=== PATIENT | female | born 1970 | race African-American/Black ===

== ENCOUNTER 2019-01-02 00:49 | Emergency (ER) | payer OTHER ==
[2019-01-02] MEDS ORDERED: predniSONE 20 MG TAB ONE (01:41)
--- NOTE | 2019-01-02 07:29 | RAD ---
EXAM: Single view of the chest HISTORY: Cough and shortness of breath COMPARISON: None FINDINGS: Single view of the chest shows a normal sized cardiomediastinal silhouette. There is no eden dence of consolidation, mass, or pleural effusion. The bones are unremarkable. IMPRESSION: No evidence of acute cardiopulmonary disease
== END 2019-01-02 03:15 | disposition home or self-care (01) ==
LOC: ERS 00:49
DX: J45.901 Unspecified asthma with (acute) exacerbation (principal); F31.9 Bipolar disorder, unspecified; F41.9 Anxiety disorder, unspecified; Z79.899 Other long term (current) drug therapy
CPT/HCPCS: 71045; 94640; J7512; J7620

== ENCOUNTER 2019-02-20 07:54 | Emergency (ER) | payer OTHER ==
[2019-02-20] MEDS ORDERED: Dexamethasone 10 MG/ML VIAL ONE (08:47)
[2019-02-20 08:54] LABS: #Basophils 0.1 thou/uL (0.0-0.2); #Eosinphils 0.4 thou/uL (0.0-0.7); #Lymphocytes 2.9 thou/uL (1.20-3.40); #Monocytes 0.5 thou/uL (0.11-0.59); #Neutrophils 5.6 thou/uL (1.40-6.50); %Basophils 0.9 % (0.0-1.0); %Eosinophils 4.4 % (0.0-10.0); %Lymphocytes 30.4 % (21.0-51.0); %Monocytes 4.8 % (0.0-10.0); %Neutrophils 59.5 % (42.0-75.0); Hemoglobin 12.4 g/dL (12.0-16.0); Mean Corpuscular HGB CONC 32.2 g/dL (32.0-36.0); Mean Corpuscular Hemoglobin 26.1 pg (27.0-31.0); Mean Corpuscular Volume 80.8 fL (78.0-98.0); Mean Platelet Volume 7.4 fL (7.4-10.4); Platelet Count 356 thou/uL (130-400); RBC Distribution Width 13.5 % (11.5-14.5); Red Blood Cell (RBC) Count 4.76 mill/uL (4.20-5.40); White Blood Cell (WBC) Count 9.5 thou/uL (4.8-10.8)
[2019-02-20] MEDS ORDERED: ISOVUE-370 76%-LOCM 1 ML ONE (09:17)
[2019-02-20 09:21] LABS: ALT (SGPT) 26 U/L (8-55); AST (SGOT) 15 U/L (5-34); Albumin 3.9 g/dL (3.5-5.0); Alkaline Phosphatase 81 U/L (40-150); Anion Gap 14 mmol/L (10-20); BUN (Urea Nitrogen) 13 mg/dL (7.0-18.7); Bilirubin, Total 0.5 mg/dL (0.2-1.2); Calc. Creatinine Clearance 0 mL/min (70-130); Calcium 10.3 mg/dL (7.8-10.44); Carbon Dioxide 31 mmol/L (22-29); Chloride 100 mmol/L (98-107); Estimated GFR-MDRD Greater than 90; Globulin 3.9 g/dL (2.4-3.5); Glucose 142 mg/dL (70-105); Potassium 4.6 mmol/L (3.5-5.1); Protein, Total 7.8 g/dL (6.0-8.3); Sodium 140 mmol/L (136-145)
[2019-02-20 10:18] LABS: Pregnancy Test - Urine (BHCG) Negative (Negative); Pregu Control Background? CLEAR/WHITE (CLR/WHITE); Pregu Control Bar Appear? YES (CONTROL BAR); Specific Gravity 1.014 (1.002-1.036)
--- NOTE | 2019-02-20 10:42 | CT ---
POSTCONTRAST SOFT TISSUE NECK CT: HISTORY: Neck pain. The patient has lost her voice. Possible reaction to allergy medicine. FINDINGS: Visualized brain parenchyma is unremarkable. Adequate aeration of the visualized sinuses and mastoid air cells. Limited evaluation of the oral cavity due to dental amalgam artifact. Midline fatty raphae of the to ngue is preserved. Epiglottis has a normal caliber. Preepiglottic fat is preserved. There is fullness of the adenoid tonsils, palatine tonsils without evidence of peritonsillar abscess. Aerodigestive tract appears to be patent. No mucosal abnormality. Symmetric attenuation of the parotid and submandibular glands. Symmetric attenuation of the cleidoma stoid muscles. Enlarged right level II lymph node measuring 1.3 x 1.3 cm. Enlarged left level II lymph node measuri ng 1.3 x 1.5 cm. Additional scattered nonspecific, nonenlarged lymph nodes are noted. Thyroid gland is unremarkable. Grossly, the great vessels of the neck are unremarkable. Cervical spine vertebral body height is maintained. There is no fracture. There are varying degrees of central canal stenosis and foraminal narrowing on the basis of degenerative change. Lung apices and upper mediastinum are unremarkable. The true vocal cords appear to be symmetric in a ppearance. No obvious thickening or abnormality. False vocal cords are unremarkable on the coronal reformatted images. IMPRESSION: 1, Lymphoid hypertrophy which may be reactive secondary to infectious or inflammatory process. Prim moses neoplasm of the lymphoid tissue cannot be completely excluded. 2. No evidence of peritonsillar abscess. 3. Unremarkable appearance of the true vocal cords. POS: [facility]
== END 2019-02-20 11:26 | disposition home or self-care (01) ==
LOC: ERS 07:54
DX: J02.9 Acute pharyngitis, unspecified (principal); F41.9 Anxiety disorder, unspecified; F31.9 Bipolar disorder, unspecified; E66.9 Obesity, unspecified
CPT/HCPCS: 36415; 70491; 80053; 81025; 85025; 85652; 86140; 96361; 96374; J1100; Q9966

== ENCOUNTER 2019-03-05 13:24 | Outpatient (CLI) | payer OTHER ==
--- NOTE | 2019-03-05 15:47 | MMO ---
Bilateral MAMMO Bilat Screen DDI. CLINICAL HISTORY: Patient is 49 years old and is seen for screening. The patient has no family history of breast cancer. The patient has no personal history of cancer. VIEWS: The views performed were: bilateral craniocaudal; bilateral mediolateral oblique; and cleavage view. FILMS COMPARED: The present examination has been compared to prior imaging studies performed at [facility] on 06/06/2013 and 03/24/2016, and at [facility] on 09/05/2008. This study has been interpreted with the assistance of computer-aided detection. MAMMOGRAM FINDINGS: There are scattered fibroglandular densities. There are no suspicious masses, suspicious calcifications, or new areas of architectural distortion. IMPRESSION: THERE IS NO MAMMOGRAPHIC EVIDENCE OF MALIGNANCY. A ROUTINE FOLLOW-UP MAMMOGRAM IN 1 YEAR IS RECOMMENDED. ACR BI-RADS Category 1 - Negative MAMMOGRAPHY NOTE: 1. A negative mammogram report should not delay a biopsy if a dominant of clinically suspicious mass is present. 2. Approximately 10% to 15% of breast cancers are not detected by mammography. 3. Adenosis and dense breasts may obscure an underlying neoplasm. Reported by: GEOFF DAWKINS MD Electonically Signed: [id number]
== END 2019-03-05 13:25 | disposition home or self-care (01) ==
LOC: SCSMAMMO 13:24
PROVIDERS: ATTEND Nurse Practitioner Family
DX: Z12.31 Encounter for screening mammogram for malignant neoplasm of breast (principal)
CPT/HCPCS: 77067

== ENCOUNTER 2020-03-09 12:21 | Outpatient (CLI) | payer OTHER ==
--- NOTE | 2020-03-09 12:59 | MMO ---
Bilateral MAMMO Bilat Screen DDI. CLINICAL HISTORY: Patient is 50 years old and is seen for screening. The patient has no family history of breast cancer. The patient has no personal history of cancer. VIEWS: The views performed were: bilateral craniocaudal and bilateral mediolateral oblique. FILMS COMPARED: The present examination has been compared to prior imaging studies performed at [facility] on 03/05/2019, at [facility] on 06/06/2013 and 03/24/2016, and at [facility] on 09/05/2008. This study has been interpreted with the assistance of computer-aided detection. MAMMOGRAM FINDINGS: The breasts are almost entirely fat. There are no suspicious masses, suspicious calcifications, or new areas of architectural distortion. IMPRESSION: THERE IS NO MAMMOGRAPHIC EVIDENCE OF MALIGNANCY. A ROUTINE FOLLOW-UP MAMMOGRAM IN 1 YEAR IS RECOMMENDED. ACR BI-RADS Category 1 - Negative MAMMOGRAPHY NOTE: 1. A negative mammogram report should not delay a biopsy if a dominant of clinically suspicious mass is present. 2. Approximately 10% to 15% of breast cancers are not detected by mammography. 3. Adenosis and dense breasts may obscure an underlying neoplasm. Reported by: MIREILLE MAIN MD Electonically Signed: [id number]
== END 2020-03-09 12:22 | disposition home or self-care (01) ==
LOC: BICMAMMO 12:21
PROVIDERS: ATTEND Nurse Practitioner Family
DX: Z12.31 Encounter for screening mammogram for malignant neoplasm of breast (principal)
CPT/HCPCS: 77067

== ENCOUNTER 2021-07-04 22:56 | Emergency (ER) | payer OTHER ==
[~2021-07-04 22:56] MED LIST: Iopamidol-370 76% 500 ML 1 ML ONE
[2021-07-05 00:48] LABS: #Basophils 0.2 thou/uL (0.0-0.2); #Eosinphils 0.2 thou/uL (0.0-0.7); #Lymphocytes 1.9 thou/uL (1.20-3.40); #Monocytes 0.4 thou/uL (0.11-0.59); #Neutrophils 5.7 thou/uL (1.40-6.50); %Basophils 2.1 % (0.0-1.0); %Eosinophils 2.4 % (0.0-10.0); %Lymphocytes 22.3 % (21.0-51.0); %Monocytes 5.2 % (0.0-10.0); %Neutrophils 67.9 % (42.0-75.0); Hemoglobin 13.3 g/dL (12.0-16.0); Mean Corpuscular HGB CONC 31.6 g/dL (32.0-36.0); Mean Corpuscular Hemoglobin 25.6 pg (27.0-31.0); Mean Corpuscular Volume 81.1 fL (78.0-98.0); Platelet Count 400 thou/uL (130-400); RBC Distribution Width 14.8 % (11.5-14.5); Red Blood Cell (RBC) Count 5.18 mill/uL (4.20-5.40); White Blood Cell (WBC) Count 8.4 thou/uL (4.8-10.8)
[2021-07-05] MEDS ORDERED: cloNIDine 0.1 MG TAB ONE (00:49)
[2021-07-05] MEDS ORDERED: Aspirin 325 MG TAB ONE (00:51)
[2021-07-05 01:09] LABS: ALT (SGPT) 15 U/L (8-55); AST (SGOT) 11 U/L (5-34); Albumin 3.9 g/dL (3.5-5.0); Alkaline Phosphatase 71 U/L (40-110); Anion Gap 13 mmol/L (10-20); BUN (Urea Nitrogen) 15 mg/dL (7.0-18.7); Bilirubin, Total 0.4 mg/dL (0.2-1.2); Calc. Creatinine Clearance 0 mL/min (70-130); Calcium 9.9 mg/dL (7.8-10.44); Carbon Dioxide 27 mmol/L (22-29); Chloride 101 mmol/L (98-107); Globulin 4.3 g/dL (2.4-3.5); Glucose 155 mg/dL (70-105); Protein, Total 8.2 g/dL (6.0-8.3); Sodium 137 mmol/L (136-145)
== END 2021-07-05 02:46 | disposition home or self-care (01) ==
LOC: ERS 22:56
DX: R07.2 Precordial pain (principal); R00.0 Tachycardia, unspecified; R05.9 Cough, unspecified; I10 Essential (primary) hypertension; E11.9 Type 2 diabetes mellitus without complications; K21.9 Gastro-esophageal reflux disease without esophagitis; J45.909 Unspecified asthma, uncomplicated; Z86.16 Personal history of COVID-19; Z79.899 Other long term (current) drug therapy
CPT/HCPCS: 71045; 71275; 80053; 84484; 85025; 93005; Q9967

== ENCOUNTER 2022-01-09 18:29 | Emergency (ER) | payer OTHER ==
[2022-01-09 19:15] LABS: #Basophils 0.1 thou/uL (0.0-0.2); #Eosinphils 0.2 thou/uL (0.0-0.7); #Lymphocytes 1.7 thou/uL (1.20-3.40); #Monocytes 0.4 thou/uL (0.11-0.59); #Neutrophils 7.1 thou/uL (1.40-6.50); %Basophils 0.6 % (0.0-1.0); %Eosinophils 2.1 % (0.0-10.0); %Lymphocytes 17.7 % (21.0-51.0); %Monocytes 3.8 % (0.0-10.0); %Neutrophils 75.9 % (42.0-75.0); Hemoglobin 13.8 g/dL (12.0-16.0); Mean Corpuscular HGB CONC 31.6 g/dL (32.0-36.0); Mean Corpuscular Hemoglobin 26.5 pg (27.0-31.0); Platelet Count 355 thou/uL (130-400); RBC Distribution Width 13.7 % (11.5-14.5); White Blood Cell (WBC) Count 9.4 thou/uL (4.8-10.8)
[2022-01-09 19:38] LABS: ALT (SGPT) 19 U/L (8-55); AST (SGOT) 13 U/L (5-34); Alkaline Phosphatase 82 U/L (40-110); Anion Gap 13 mmol/L (10-20); BUN (Urea Nitrogen) 12 mg/dL (7.0-18.7); Bilirubin, Total 0.6 mg/dL (0.2-1.2); Calc. Creatinine Clearance 0 mL/min (70-130); Calcium 10.2 mg/dL (7.8-10.44); Carbon Dioxide 29 mmol/L (22-29); Chloride 101 mmol/L (98-107); Globulin 3.9 g/dL (2.4-3.5); Glucose 136 mg/dL (70-105); Lipase 12 U/L (8-78); Potassium 5.1 mmol/L (3.5-5.1); Protein, Total 7.9 g/dL (6.0-8.3); Sodium 138 mmol/L (136-145)
[2022-01-09] MEDS ORDERED: hydrALAZINE 20 MG/ML VIAL ONE (20:26)
[2022-01-09] MEDS ORDERED: Ondansetron PF 4 MG/2 ML Vial ONE (21:33)
== END 2022-01-09 22:10 | disposition home or self-care (01) ==
LOC: ERS 18:29
DX: I10 Essential (primary) hypertension (principal); E11.9 Type 2 diabetes mellitus without complications; K21.9 Gastro-esophageal reflux disease without esophagitis; Z86.16 Personal history of COVID-19; Z79.899 Other long term (current) drug therapy
CPT/HCPCS: 36415; 71045; 80053; 83690; 84484; 85025; 93005; 96374; 96375; J0360; J2405